=== PATIENT | female | born 1990 | race Hispanic/Latino ===

== ENCOUNTER 2017-04-25 20:36 | Emergency (ER) | payer MEDICAID, OTHER ==
[2017-04-25] MEDS ORDERED: ACETAMINOPHEN 325 MG TAB ONE (21:23)
[2017-04-25 21:35] LABS: APPEARANCE,URINE Turbid (CLEAR); BILIRUBIN,URINE Negative (NEGATIVE); COLOR,URINE Yellow (YELLOW); GLUCOSE, URINE (UA) Negative (NEGATIVE); KETONES,URINE Negative (NEGATIVE); LEUKOCYTE ESTERASE ,URINE Moderate (NEGATIVE); NITRATE,URINE Negative (NEGATIVE); OCCULT BLOOD,URINE Large (NEGATIVE); PH,URINE >=9.0 (5.0-8.0); PROTEIN,URINE Trace (NEGATIVE)
[2017-04-25 21:45] LABS: AMORPHOUS SEDIMENT,UR Many /LPF (None Seen); BACTERIA,URINE Few /HPF (None Seen); TRICHOMONAS,URINE Few /LPF (None Seen)
== END 2017-04-25 22:59 | disposition home or self-care (01) ==
LOC: EDH 20:36
DX: O20.0 Threatened abortion (principal); N83.201 Unspecified ovarian cyst, right side; R10.2 Pelvic and perineal pain; Z3A.13 13 weeks gestation of pregnancy
CPT/HCPCS: 76801; 81001

== ENCOUNTER 2017-06-14 11:01 | Inpatient (IN) | payer MEDICAID ==
[~2017-06-14] VITALS: Ht 154.9 cm; Wt 56.7 kg
[2017-06-14] MEDS ORDERED: MISOPROSTOL 100 MCG TABLET VG SCH (11:30)
[2017-06-14 11:40] LABS: HEMATOCRIT 37.7 % (36-48); MEAN CORPUSCULAR HEMOGLOBIN 32.9 pg (27.0-33.0); MEAN CORPUSCULAR HGB CONC 35.2 g/dL (32.0-36.0); MEAN CORPUSCULAR VOLUME 93.6 fL (79-99); PLATELET COUNT (AUTO) 240 K/uL (130-400); RED BLOOD CELL COUNT(AUTO) 4.02 MIL/uL (4.00-5.50); RED CELL DISTRIBUTION WIDTH 12.5 % (11.0-15.5); WHITE BLOOD COUNT (AUTO) 7.7 K/uL (4.8-10.8)
[2017-06-14] MEDS ORDERED: MEPERIDINE-PF 100 MG/ML SYG IVP PRN (11:45)
[2017-06-14] MEDS ORDERED: PROMETHAZINE HCL 25 MG/ML 1ML AMPULE IM PRN (11:45)
[2017-06-14] MEDS ORDERED: EPHEDRINE SULFATE 50 MG/ML AMPULE IV ONE (12:00)
[2017-06-14] MEDS: LACTATED RINGERS 1000ML 1,000 ML IV PRN ×2 (12:10→16:34)
[2017-06-14] MEDS ORDERED: MISOPROSTOL 200 MCG TABLET VG SCH (13:00)
[2017-06-14] MEDS: MISOPROSTOL 200 MCG TABLET VG SCH ×2 (16:33→20:31)
[2017-06-14] MEDS ORDERED: OXYTOCIN 10 USP UNITS/ML ONE (22:57)
[2017-06-14] MEDS: MEPERIDINE-PF 50 MG/ML SYG IVP PRN (23:05)
[2017-06-15] VITALS (38 sets, daily range): BP systolic 77–128; BP diastolic 43–87
[2017-06-15] MEDS: LACTATED RINGERS 1000ML 1,000 ML IV PRN ×3 (00:28→22:05)
[2017-06-15] MEDS: MISOPROSTOL 200 MCG TABLET VG SCH ×2 (00:34→04:00)
[2017-06-15 02:45] LABS: HEMATOCRIT 27.5 % (36-48)
[2017-06-15] MEDS ORDERED: NALOXONE HCL 0.4 MG/1 ML ML ONE (04:29)
[2017-06-15 04:36] LABS: ABG BASE EXCESS -5.1 mmol/L (-2.0-3.0); ABG HCO3 17.8 mmol/L (21.0-28.0); ABG OXYGEN SATURATION 99.9 % (95.0-99.0); ABG PCO2 28 mmHg (32-45)
[2017-06-15 04:37] LABS: HEMATOCRIT 27.9 % (36-48)
[2017-06-15] MEDS ORDERED: CEFAZOLIN 1GM / D5W 50ML 50 ML ONE (04:41)
[2017-06-15] MEDS ORDERED: SUCCINYLCHOLINE 200MG/10ML SYR ONE (04:42)
[2017-06-15] MEDS ORDERED: GLYCOPYRROLATE 0.2 MG/ML 5 ML VIAL ONE (04:42)
[2017-06-15] MEDS ORDERED: NEOSTIGMINE 5MG/5ML SYR IV ONE (04:42)
[2017-06-15] MEDS ORDERED: DEXAMETHASONE SOD PHOSPHATE 10MG/ML 1ML VIAL ONE (04:42)
[2017-06-15] MEDS ORDERED: PROPOFOL 10 MG/ML 20ML VIAL IV ONE (04:42)
[2017-06-15] MEDS ORDERED: LIDOCAINE PF 2% 5ML ABBOJECT ONE (04:42)
[2017-06-15] MEDS ORDERED: MIDAZOLAM HCL 1 MG/ML 2ML VIAL ONE ×2 (04:42→05:31)
[2017-06-15] MEDS ORDERED: FENTANYL CITRATE PF 50 MCG/1 ML 2ML VIAL ONE (04:43)
[2017-06-15] MEDS ORDERED: CEFAZOLIN SODIUM 1 GM VIAL IV SCH (04:44)
[2017-06-15] MEDS ORDERED: CARBOPROST TROMETHAMINE 250 MCG/ML AMP IM ONE (05:02)
[2017-06-15] MEDS ORDERED: OXYTOCIN 10 USP UNITS/ML ONE (05:02)
[2017-06-15] MEDS ORDERED: METHYLERGONOVINE MALEATE 0.2 MG/1 ML ML ONE (05:02)
[2017-06-15] MEDS ORDERED: SODIUM CHLORIDE 0.9% 1000ML 1,000 ML IV SCH ×2 (05:04→07:15)
[2017-06-15] MEDS ORDERED: KETAMINE HCL 100 MG/ML 5ML VIAL IJ ONE (05:06)
[2017-06-15 05:09] LABS: POTASSIUM 3.7 mmol/L (3.5-5.1)
[2017-06-15 05:10] LABS: INR 0.97 (0.85-1.15); PARTIAL THROMBOPLASTIN TIME 23.8 SEC (26.3-35.5); PROTHROMBIN TIME 10.2 SEC (9.6-11.6)
[2017-06-15 05:13] LABS: ALBUMIN 2.4 g/dL (3.5-5.0); BILIRUBIN,TOTAL 0.4 mg/dL (0.2-1.0); TOTAL PROTEIN, SERUM 6.3 g/dL (6.0-8.3)
[2017-06-15] MEDS ORDERED: DEXTROSE 50%-WATER 50 ML DISP.SYRIN IV ONE (05:15)
[2017-06-15] MEDS ORDERED: NALOXONE HCL 0.4 MG/1 ML ML IVP ONE (05:15)
[2017-06-15] MEDS ORDERED: NOREPINEPHRINE BITARTRATE 1 MG/1 ML ML IV ONE (05:25)
[2017-06-15] MEDS ORDERED: SODIUM CHLORIDE 0.9% 250 ML IV ONE (05:26)
[2017-06-15 05:29] LABS: MEAN CORPUSCULAR HEMOGLOBIN 33.9 pg (27.0-33.0); MEAN CORPUSCULAR HGB CONC 35.7 g/dL (32.0-36.0); MEAN CORPUSCULAR VOLUME 94.8 fL (79-99); PLATELET COUNT (AUTO) 260 K/uL (130-400); RED BLOOD CELL COUNT(AUTO) 2.94 MIL/uL (4.00-5.50); RED CELL DISTRIBUTION WIDTH 12.3 % (11.0-15.5); WHITE BLOOD COUNT (AUTO) 19.7 K/uL (4.8-10.8)
[2017-06-15 05:32] LABS: LYMPHOCYTES % (MANUAL) 11 % (22-44); MAN.DIFF COMMENT-IMPRESSION MANUAL DIFFERENTIAL; MONOCYTES % (MANUAL) 4 % (2-9); SEGMENTED NEUTROPHILS % 85 % (40-70)
[2017-06-15 05:33] LABS: PLATELET MORPHOLOGY COMMENT ADEQUATE
[2017-06-15] MEDS ORDERED: MIDAZOLAM HCL 1 MG/ML 2ML VIAL IVP ONE (05:34)
[2017-06-15] MEDS: SODIUM CHLORIDE 0.9% 1000ML 1,000 ML IV SCH ×6 (05:45→22:45)
[2017-06-15] MEDS ORDERED: PROPOFOL 1000 MG/100 ML 100 ML IV ONE (06:03)
[2017-06-15] MEDS ORDERED: NOREPINEPHRINE 4MG/NS 250ML 250 ML IV SCH ×2 (06:45→07:45)
[2017-06-15] MEDS ORDERED: VANCOMYCIN PROTOCOL PER PHARMACY IV SCH (06:45)
[2017-06-15] MEDS ORDERED: MEROPENEM 1GM IVPB PREMIXED 1 GM IV SCH (06:45)
[2017-06-15] MEDS ORDERED: PROPOFOL 1000 MG/100 ML IV PRN (06:45)
[2017-06-15] MEDS ORDERED: COMPOUND IV REFRIGERATED 1 EACH IVSOLN MISC PRN (07:15)
[2017-06-15 07:23] LABS: ABG BASE EXCESS -6.5 mmol/L (-2.0-3.0); ABG HCO3 18.3 mmol/L (21.0-28.0); ABG OXYGEN SATURATION 67.3 % (95.0-99.0); ABG PCO2 34 mmHg (32-45)
[2017-06-15 07:40] LABS: HEMATOCRIT 28.9 % (36-48); MEAN CORPUSCULAR HEMOGLOBIN 31.7 pg (27.0-33.0); MEAN CORPUSCULAR HGB CONC 35.4 g/dL (32.0-36.0); MEAN CORPUSCULAR VOLUME 89.6 fL (79-99); PLATELET COUNT (AUTO) 240 K/uL (130-400); RED BLOOD CELL COUNT(AUTO) 3.22 MIL/uL (4.00-5.50); RED CELL DISTRIBUTION WIDTH 15.7 % (11.0-15.5); WHITE BLOOD COUNT (AUTO) 17.8 K/uL (4.8-10.8)
[2017-06-15 07:59] LABS: CREATININE 0.8 mg/dL (0.5-1.5); POTASSIUM 4.1 mmol/L (3.5-5.1)
[2017-06-15 08:09] LABS: ABG BASE EXCESS -8.3 mmol/L (-2.0-3.0); ABG HCO3 15.4 mmol/L (21.0-28.0); ABG OXYGEN SATURATION 99.6 % (95.0-99.0); ABG PCO2 28 mmHg (32-45)
[2017-06-15] MEDS: MEPERIDINE-PF 50 MG/ML SYG IVP PRN (08:19)
[2017-06-15 08:25] LABS: HEPATITIS Bs ANTIGEN SCREEN P Negative (Negative)
[2017-06-15] MEDS: MEROPENEM 1 GM VIAL IVP SCH ×3 (08:40→23:36)
[2017-06-15] MEDS ORDERED: FAMOTIDINE/PF 20 MG/2 ML VIAL IV SCH (09:00)
[2017-06-15] MEDS ORDERED: VANCOMYCIN 1GM+NS 250ML 250 ML IV SCH (09:00)
[2017-06-15 09:56] LABS: RAPID PLASMA REAGIN NONREACTIVE (NONREACTIVE)
[2017-06-15 11:34] LABS: HEMATOCRIT 23.6 % (36-48)
[2017-06-15] MEDS ORDERED: PHENTOLAMINE MESYLATE 5 MG VIAL ICAV SCH (16:15)
[2017-06-15] MEDS ORDERED: ALBUMIN (HUMAN) 5% 250 ML IV STA (19:07)
[2017-06-15] MEDS ORDERED: ALBUMIN (HUMAN) 5% 500 ML IV ONE (19:10)
[2017-06-15] MEDS ORDERED: ALBUMIN (HUMAN) 5% 250 ML IV SCH (19:15)
[2017-06-15] MEDS: MIDODRINE HCL 5 MG TABLET PO SCH ×2 (20:23→21:53)
[2017-06-15] MEDS: FAMOTIDINE 20MG TAB 20 MG TAB PO SCH (22:01)
[2017-06-15] MEDS: VANCOMYCIN 750MG + NS 250 ML IV SCH ×2 (22:04)
[2017-06-16] VITALS (20 sets, daily range): BP systolic 92–113; BP diastolic 45–73
[2017-06-16 04:04] LABS: CREATININE 0.6 mg/dL (0.5-1.5); MAGNESIUM 1.4 mg/dL (1.80-2.40); POTASSIUM 3.3 mmol/L (3.5-5.1)
[2017-06-16 04:22] LABS: MEAN CORPUSCULAR HEMOGLOBIN 33.7 pg (27.0-33.0); MEAN CORPUSCULAR HGB CONC 37.6 g/dL (32.0-36.0); MEAN CORPUSCULAR VOLUME 89.7 fL (79-99); PLATELET COUNT (AUTO) 121 K/uL (130-400); RED BLOOD CELL COUNT(AUTO) 1.98 MIL/uL (4.00-5.50); RED CELL DISTRIBUTION WIDTH 16.4 % (11.0-15.5); WHITE BLOOD COUNT (AUTO) 6.9 K/uL (4.8-10.8)
[2017-06-16 04:26] LABS: HEMATOCRIT 17.7 % (36-48)
[2017-06-16] MEDS: MIDODRINE HCL 5 MG TABLET PO SCH ×3 (06:01→22:08)
[2017-06-16] MEDS: SODIUM CHLORIDE 0.9% 1000ML 1,000 ML IV SCH (06:01)
[2017-06-16] MEDS: MEROPENEM 1 GM VIAL IVP SCH ×3 (06:01→22:08)
[2017-06-16] MEDS ORDERED: SODIUM CHLORIDE 0.9% 250 ML IV ONE (06:30)
[2017-06-16] MEDS ORDERED: MAGNESIUM 2GM PREMIX 50ML 50 ML IV SCH (07:45)
[2017-06-16] MEDS ORDERED: POTASSIUM CHLORIDE 20MEQ/100ML 100 ML IV PRN (07:45)
[2017-06-16] MEDS ORDERED: LIDOCAINE HCL-MPF 1% 2ML VIAL IVP PRN (07:45)
[2017-06-16] MEDS: FAMOTIDINE 20MG TAB 20 MG TAB PO SCH ×2 (08:13→20:52)
[2017-06-16] MEDS: VANCOMYCIN 750MG + NS 250 ML IV SCH ×2 (08:13)
[2017-06-16] MEDS: POTASSIUM CHLORIDE 10% ELIXIR 20 MEQ/15 ML UDCUP PO PRN ×2 (10:25→13:27)
[2017-06-16] MEDS: VANCOMYCIN 1GM+NS 250ML 250 ML IV SCH (22:10)
[2017-06-17 03:26] VITALS: BP 102/55
[2017-06-17 04:56] LABS: CREATININE 0.6 mg/dL (0.5-1.5); MAGNESIUM 1.9 mg/dL (1.80-2.40); PHOSPHORUS 3.1 mg/dL (2.5-4.9); POTASSIUM 3.6 mmol/L (3.5-5.1)
[2017-06-17 05:08] LABS: HEMATOCRIT 23.2 % (36-48); MEAN CORPUSCULAR HEMOGLOBIN 31.5 pg (27.0-33.0); MEAN CORPUSCULAR HGB CONC 35.7 g/dL (32.0-36.0); MEAN CORPUSCULAR VOLUME 88.3 fL (79-99); NUCLEATED RED BLOOD CELLS 0.1 % (0.0-0.19); PLATELET COUNT (AUTO) 145 K/uL (130-400); RED BLOOD CELL COUNT(AUTO) 2.62 MIL/uL (4.00-5.50); RED CELL DISTRIBUTION WIDTH 16.9 % (11.0-15.5); WHITE BLOOD COUNT (AUTO) 6.9 K/uL (4.8-10.8)
[2017-06-17] MEDS: MEROPENEM 1 GM VIAL IVP SCH (06:17)
[2017-06-17] MEDS: MIDODRINE HCL 5 MG TABLET PO SCH (06:18)
[2017-06-17] MEDS: POTASSIUM CHLORIDE 20 MEQ ERTAB PO PRN ×2 (06:19→09:00)
[2017-06-17 06:31] LABS: EOSINOPHILS % (MANUAL) 1 % (1-6); LYMPHOCYTES % (MANUAL) 28 % (22-44); MAN.DIFF COMMENT-IMPRESSION MANUAL DIFFERENTIAL; MONOCYTES % (MANUAL) 2 % (2-9); PLATELET MORPHOLOGY COMMENT ADEQUATE; SEGMENTED NEUTROPHILS % 69 % (40-70)
[2017-06-17 07:45] VITALS: BP 103/54
[2017-06-17] MEDS: VANCOMYCIN 1GM+NS 250ML 250 ML IV SCH (09:00)
[2017-06-17] MEDS: FAMOTIDINE 20MG TAB 20 MG TAB PO SCH (09:00)
[2017-06-17 11:14] VITALS: BP 95/66
== END 2017-06-17 14:15 | disposition home or self-care (01) | DRG 544 ==
LOC: LDH 11:01 → OBSVTOIN 11:01 → 2BH 06-15 05:51 → 2CH 06-15 10:17 → WSH 06-16 14:49
PROVIDERS: ADMIT Internal Medicine Critical Care Medicine; ATTEND Internal Medicine Critical Care Medicine
PROC: 5A1935Z Respiratory Ventilation, Less than 24 Consecutive Hours (ICD-10-PCS; principal; 2017-06-15)
PROC: 0BH17EZ Insertion of Endotracheal Airway into Trachea, Via Natural or Artificial Opening (ICD-10-PCS; 2017-06-15)
PROC: 10D17ZZ Extraction of Products of Conception, Retained, Via Natural or Artificial Opening (ICD-10-PCS; 2017-06-15)
PROC: 30233N1 Transfusion of Nonautologous Red Blood Cells into Peripheral Vein, Percutaneous Approach (ICD-10-PCS; 2017-06-15)
PROC: 3E0P7VZ Introduction of Hormone into Female Reproductive, Via Natural or Artificial Opening (ICD-10-PCS; 2017-06-17)
PROC: 3E0P7VZ Introduction of Hormone into Female Reproductive, Via Natural or Artificial Opening (ICD-10-PCS; 2017-06-17)
DX: O36.4XX0 Maternal care for intrauterine death, not applicable or unspecified (principal); O26.52 Maternal hypotension syndrome, second trimester; D62 Acute posthemorrhagic anemia; O21.9 Vomiting of pregnancy, unspecified; O99.512 Diseases of the respiratory system complicating pregnancy, second trimester; Z78.1 Physical restraint status; Z3A.20 20 weeks gestation of pregnancy
CPT/HCPCS: 31500; 36415; 36600; 70450; 71045; 80048; 80053; 80202; 82533; 82803; 82948; 83605; 83735; 84100; 85014; 85018; 85025; 85027; 85378; 85384; 85610; 85730; 86592; 86701; 86850; 86900; 86901; 86922; 87040; 87340; 87390; 88305; 88309; 93005; 93970; 94002; 95819; A4218; J0330; J0690; J1100; J2001; J2175; J2185; J2210; J2250; J2310; J2550; J2590; J2704; J2710; J2760; J3010; J3370; J3475; J3490; J7030; J7120; P9016; P9045

== ENCOUNTER 2018-01-19 17:21 | Observation (INO) | payer MEDICAID ==
[~2018-01-19] VITALS: Ht 152.4 cm; Wt 59.9 kg
[2018-01-19 17:50] LABS: BILIRUBIN,URINE Negative (NEGATIVE); COLOR,URINE Yellow (YELLOW); GLUCOSE, URINE (UA) Negative (NEGATIVE); KETONES,URINE Negative (NEGATIVE); LEUKOCYTE ESTERASE ,URINE Moderate (NEGATIVE); NITRATE,URINE Negative (NEGATIVE); OCCULT BLOOD,URINE Negative (NEGATIVE); PH,URINE 7.5 (5.0-8.0); PROTEIN,URINE Negative (NEGATIVE)
[2018-01-19 17:53] LABS: APPEARANCE,URINE CLOUDY (CLEAR)
[2018-01-19 17:59] LABS: AMORPHOUS SEDIMENT,UR Moderate /LPF (None Seen); BACTERIA,URINE Few /HPF (None Seen); RBC,URINE 0-1 /HPF (0-1); SQUAMOUS EPITHELIAL CELL,UR Rare /HPF (0-2)
[2018-01-19] MEDS ORDERED: LACTATED RINGERS 1000ML 1,000 ML IV SCH (18:45)
[2018-01-19] MEDS ORDERED: TERBUTALINE SULFATE VIAL 1MG/ML SQ ONE ×2 (18:58→20:00)
== END 2018-01-19 21:15 | disposition home or self-care (01) ==
LOC: EDH 17:21 → LDH 17:22
PROVIDERS: ADMIT Specialist; ATTEND Specialist
DX: O26.892 Other specified pregnancy related conditions, second trimester (principal); R10.9 Unspecified abdominal pain; M54.9 Dorsalgia, unspecified; Z3A.20 20 weeks gestation of pregnancy; Z79.899 Other long term (current) drug therapy
CPT/HCPCS: 81001; 99285; G0378 ×4; J3105; J7120 ×2; 96360